=== PATIENT | male | born 1940 | race Caucasian/White ===

== ENCOUNTER 2020-12-17 14:39 | Emergency (ER) | payer MEDICARE ==
[2020-12-17 15:00] VITALS: RESP 18; TEMP 98.7
--- NOTE | 2020-12-17 16:24 | ED ---
General Adult HPI - General Chief complaint: Extremity Problem,Nontraumatic Stated complaint: L foot swelling Time Seen by Provider: 12/17/20 16:09 Source: patient, family, RN notes reviewed, old records reviewed Mode of arrival: ambulatory Limitations: no limitations - History of Present Illness Initial comments: 80-year-old male presenting for concern for infection left third toe. This been ongoing for the past. Of one month. He was on a course of oral antibiotics and topical Neosporin prescribed by his gravure press set up operator. He had been evaluated and felt to require evaluation the emergency department. He has been afebrile. He states that the leg has been swollen for approximately one month and he noted some increased erythema and swelling of the both first toe and third toe on the left. There is been no purulent drainage. No significant pain. He is a known diabetic. - Related Data Previous Rx's Medication Instructions Recorded Cephalexin [Keflex] 500 mg PO QID #40 cap 12/17/20 Sulfamethox-Tmp 800-160Mg [Bactrim 1 tab PO Q12HR #28 tab 12/17/20 DS 800-160 mg] Allergies Allergy/AdvReac Type Severity Reaction Status Date / Time No Known Allergies Allergy Verified 12/17/20 15:00 Review of Systems ROS Statement: Those systems with pertinent positive or pertinent negative responses have been documented in the HPI. ROS Other: All systems not noted in ROS Statement are negative. Past Medical History Past Medical History: Atrial Fibrillation, Diabetes Mellitus History of Any Multi-Drug Resistant Organisms: MRSA Date of last positivie culture/infection: 11/21/20 MDRO Source:: Left 3rd Toe Past Surgical History: Joint Replacement Additional Past Surgical History / Comment(s): bilater knee replacement, right hip sx, left shoulder sx Past Psychological History: No Psychological Hx Reported Smoking Status: Former smoker Past Alcohol Use History: None Reported Past Drug Use History: None Reported General Exam Limitations: no limitations General appearance: alert, in no apparent distress Head exam: Present: atraumatic, normocephalic Eye exam: Present: normal appearance, PERRL ENT exam: Present: normal exam Neck exam: Present: normal inspection. Absent: tenderness, meningismus Respiratory exam: Present: normal lung sounds bilaterally. Absent: respiratory distress, wheezes Cardiovascular Exam: Present: normal rhythm, tachycardia GI/Abdominal exam: Present: soft. Absent: distended, tenderness, guarding, rebound Extremities exam: Present: pedal edema (The left leg is swollen to the knee. There is erythema in the first and third toe with some soft tissue swelling. No drainable abscess noted. No erythema into the foot.) Neurological exam: Present: alert, oriented X3, CN II-XII intact. Absent: motor sensory deficit Psychiatric exam: Present: normal affect, normal mood Skin exam: Present: warm, dry Course Vital Signs 12/17/20 14:48 Temperature 98.7 F Pulse Rate 49 L Respiratory 18 Rate Blood Pressure 200/74 O2 Sat by Pulse 98 Oximetry Medical Decision Making - Medical Decision Making 80-year-old male with suspected infection in the first and third toes of the left foot. Patient well-appearing with stable vitals. He is afebrile with no history of fever. There was some soft tissue swelling without erythema in the leg. I did perform an ultrasound which was negative for DVT. He has good cap refill. There is no obvious ulceration or purulent drainage. He has normal white blood cell count, he is anemic with history of iron deficiency anemia. He is on Coumadin which is therapeutic. He has normal electrolytes, normal lactic acid. At this time we will trial oral antibiotics. He has an appointment with his gravure press set up operator on . He will maintain this appointment for reevaluation. - Lab Data Result diagrams: 12/17/20 16:46 12/17/20 16:46 Lab Results 12/17/20 12/17/20 12/17/20 Range/Units 16:46 16:46 16:46 WBC 7.0 (3.8-10.6) k/uL RBC 3.99 L (4.30-5.90) m/uL Hgb 9.9 L (13.0-17.5) gm/dL Hct 31.1 L (39.0-53.0) % MCV 77.8 L (80.0-100.0) fL MCH 24.7 L (25.0-35.0) pg MCHC 31.7 (31.0-37.0) g/dL RDW 18.1 H (11.5-15.5) % Plt Count 202 (150-450) k/uL MPV 7.3 Neutrophils % 72 % Lymphocytes % 10 % Monocytes % 7 % Eosinophils % 8 % Basophils % 1 % Neutrophils # 5.0 (1.3-7.7) k/uL Lymphocytes # 0.7 L (1.0-4.8) k/uL Monocytes # 0.5 (0-1.0) k/uL Eosinophils # 0.6 (0-0.7) k/uL Basophils # 0.0 (0-0.2) k/uL Anisocytosis Slight Microcytosis Slight PT 23.7 H (9.0-12.0) sec INR 2.4 H (<1.2) APTT 46.4 H (22.0-30.0) sec Sodium 134 L (137-145) mmol/L Potassium 4.2 (3.5-5.1) mmol/L Chloride 102 (98-107) mmol/L Carbon Dioxide 24 (22-30) mmol/L Anion Gap 8 mmol/L BUN 11 (9-20) mg/dL Creatinine 0.76 (0.66-1.25) mg/dL Est GFR (CKD-EPI)AfAm >90 (>60 ml/min/1.73 sqM) Est GFR (CKD-EPI)NonAf 87 (>60 ml/min/1.73 sqM) Glucose 96 (74-99) mg/dL Plasma Lactic Acid Lauro (0.7-2.0) mmol/L Calcium 8.6 (8.4-10.2) mg/dL Magnesium 2.1 (1.6-2.3) mg/dL Total Bilirubin 0.6 (0.2-1.3) mg/dL AST 28 (17-59) U/L ALT 11 (4-49) U/L Alkaline Phosphatase 107 (38-126) U/L Total Protein 6.5 (6.3-8.2) g/dL Albumin 3.5 (3.5-5.0) g/dL 12/17/20 Range/Units 16:46 WBC (3.8-10.6) k/uL RBC (4.30-5.90) m/uL Hgb (13.0-17.5) gm/dL Hct (39.0-53.0) % MCV (80.0-100.0) fL MCH (25.0-35.0) pg MCHC (31.0-37.0) g/dL RDW (11.5-15.5) % Plt Count (150-450) k/uL MPV Neutrophils % % Lymphocytes % % Monocytes % % Eosinophils % % Basophils % % Neutrophils # (1.3-7.7) k/uL Lymphocytes # (1.0-4.8) k/uL Monocytes # (0-1.0) k/uL Eosinophils # (0-0.7) k/uL Basophils # (0-0.2) k/uL Anisocytosis Microcytosis PT (9.0-12.0) sec INR (<1.2) APTT (22.0-30.0) sec Sodium (137-145) mmol/L Potassium (3.5-5.1) mmol/L Chloride (98-107) mmol/L Carbon Dioxide (22-30) mmol/L Anion Gap mmol/L BUN (9-20) mg/dL Creatinine (0.66-1.25) mg/dL Est GFR (CKD-EPI)AfAm (>60 ml/min/1.73 sqM) Est GFR (CKD-EPI)NonAf (>60 ml/min/1.73 sqM) Glucose (74-99) mg/dL Plasma Lactic Acid Lauro 0.7 (0.7-2.0) mmol/L Calcium (8.4-10.2) mg/dL Magnesium (1.6-2.3) mg/dL Total Bilirubin (0.2-1.3) mg/dL AST (17-59) U/L ALT (4-49) U/L Alkaline Phosphatase (38-126) U/L Total Protein (6.3-8.2) g/dL Albumin (3.5-5.0) g/dL Disposition Clinical Impression: Cellulitis of toe of left foot Disposition: HOME SELF-CARE Condition: Fair Instructions (If sedation given, give patient instructions): Cellulitis (ED) Prescriptions: Sulfamethox-Tmp 800-160Mg [Bactrim DS 800-160 mg] 1 tab PO Q12HR #28 tab Cephalexin [Keflex] 500 mg PO QID #40 cap Is patient prescribed a controlled substance at d/c from ED?: No Referrals: Fredy Castellano MD [Primary Care Provider] - 1-2 days Time of Disposition: 18:47
--- NOTE | 2020-12-17 17:35 | US ---
EXAMINATION TYPE: US venous doppler duplex LE LT DATE OF EXAM: 12/17/2020 5:16 PM COMPARISON: NONE CLINICAL HISTORY: swelling. Left lower leg pain and swelling, patient on blood thinners SIDE PERFORMED: Left TECHNIQUE: The lower extremity deep venous system is examined utilizing real time linear array sonog leticia with graded compression, doppler sonography and color-flow sonography. VESSELS IMAGED: Common Femoral Vein Deep Femoral Vein Greater Saphenous Vein * Femoral Vein Popliteal Vein Small Saphenous Vein * Proximal Calf Veins (* superficial vessels) Left Leg: Negative for DVT IMPRESSION: Grayscale, color doppler, spectral doppler imaging performed of the deep veins of the le lower extremity. There is normal flow, compressibility, vascular waveforms.
[2020-12-17 18:01] LABS: Anisocytosis Slight; Basophils % (A) 1 %; Eosinophils # (A) 0.6 k/uL (0-0.7); Eosinophils % (A) 8 %; HCT 31.1 % (39.0-53.0); HGB 9.9 gm/dL (13.0-17.5); Lymphocytes # (A) 0.7 k/uL (1.0-4.8); Lymphocytes % (A) 10 %; MCH 24.7 pg (25.0-35.0); MCHC 31.7 g/dL (31.0-37.0); MCV 77.8 fL (80.0-100.0); Mean Platelet Volume 7.3; Microcytosis Slight; Monocytes # (A) 0.5 k/uL (0-1.0); Monocytes % (A) 7 %; Neutrophils % (A) 72 %; Platelet Count 202 k/uL (150-450); RBC 3.99 m/uL (4.30-5.90); RDW 18.1 % (11.5-15.5)
[2020-12-17 18:09] LABS: INR 2.4 (<1.2); Partial Thromboplastin Time 46.4 sec (22.0-30.0); Prothrombin Time 23.7 sec (9.0-12.0)
[2020-12-17 18:32] LABS: ALT 11 U/L (4-49); AST 28 U/L (17-59); African American GFR (CKD) >90 (>60 ml/min/1.73 sqM); Albumin 3.5 g/dL (3.5-5.0); Alkaline Phosphatase 107 U/L (38-126); Anion Gap 8 mmol/L; Blood Urea Nitrogen 11 mg/dL (9-20); Calcium 8.6 mg/dL (8.4-10.2); Carbon Dioxide 24 mmol/L (22-30); Chloride 102 mmol/L (98-107); Glucose 96 mg/dL (74-99); Magnesium 2.1 mg/dL (1.6-2.3); Non-African American GFR(CKD) 87 (>60 ml/min/1.73 sqM); Potassium 4.2 mmol/L (3.5-5.1); Sodium 134 mmol/L (137-145); Total Bilirubin 0.6 mg/dL (0.2-1.3); Total Protein 6.5 g/dL (6.3-8.2)
[2020-12-17 19:42] VITALS: BP 201/74; PULSE 60
== END 2020-12-17 19:07 | disposition home or self-care (01) ==
LOC: EC 14:39
DX: L03.032 Cellulitis of left toe (principal); E11.9 Type 2 diabetes mellitus without complications; I48.91 Unspecified atrial fibrillation; Z87.891 Personal history of nicotine dependence; Z79.01 Long term (current) use of anticoagulants
CPT/HCPCS: 36415; 80053; 83605; 83735; 85025; 85610; 85730; 87040; 99284

== ENCOUNTER → 2021-11-06 | Day surgery (SDC) | payer MEDICARE ==
[2021-10-28 13:24] VITALS: BMI 25.1
[~2021-11-06] MED LIST: SIMETHICONE 40 MG/0.6 ML DROPS 2,000 MG/30 ML BOTTLE PO ONE
[2021-11-06 07:10] VITALS: BP 127/62; PULSE 63; RESP 18; TEMP 97.4
== END ==
LOC: ORWHC2ENDO 06:40
PROVIDERS: ATTEND Internal Medicine Gastroenterology
DX: D50.9 Iron deficiency anemia, unspecified (principal)
CPT/HCPCS: 91110

== ENCOUNTER → 2022-05-27 | Outpatient (CLI) | payer MEDICARE ==
--- NOTE | 2022-05-27 20:23 | MR ---
EXAMINATION TYPE: MR abdomen wo/w con DATE OF EXAM: 05/27/2022 COMPARISON: None HISTORY: PT STATED LOW HEMOGLOBIN AND HAD AN ULTRASOUND OF KIDNEY DONE AT [facility] CONTRAST: Standard multiplanar, multisequence MRI departmental protocol images were obtained without contrast a nd with 7.5 mL intravenous Gadavist gadolinium contrast. There is a large complex mixed signal rounded 14.5 cm mass above the upper pole of the right kidney. There is some inferior displacement of the right kidney. The origin of this mass is not clear what ap pears separate from the liver and also separate from the right renal cortex. There is no enhancement. There is no evidence of retroperitoneal adenopathy. The kidneys show satisfactory contrast enhanceme nt. No hydronephrosis. Liver shows no focal defect. The spleen is intact. There is no evidence of pancreatic mass. The stoma ch is intact. No evidence of left adrenal mass. Right adrenal gland not seen. The large mass above th e right kidney could be arising from the right adrenal gland. No evidence of a bowel obstruction. No ascites. No evidence of pleural effusion. There are low signal irregular areas within the gallbladder consistent with multiple gallstones. No gallbladder wall thic kening. No dilated ducts. IMPRESSION: There is a large complex mixed signal mass which is nonenhancing and has mixed signal within the righ t upper quadrant that could be a large adrenal tumor with hemorrhage. Cholelithiasis. No dilated ducts. No focal liver defect.
== END | disposition home or self-care (01) ==
LOC: RADMRIMAIN 16:45
PROVIDERS: ATTEND Internal Medicine Hematology & Oncology
DX: K80.20 Calculus of gallbladder without cholecystitis without obstruction (principal); R19.01 Right upper quadrant abdominal swelling, mass and lump
CPT/HCPCS: 74183; A9585

== ENCOUNTER 2022-06-01 08:50 | Day surgery (SDC) | payer MEDICARE ==
[~2022-06-01 08:50] MED LIST changes: +ALPRAZolam 0.25 MG TAB PO PRN; +HYDROmorphone 0.5 MG/0.5 ML SYRINGE IVP PRN; -SIMETHICONE 40 MG/0.6 ML DROPS 2,000 MG/30 ML BOTTLE PO ONE
[2022-06-01 09:39] LABS: Basophils % (A) 1 %; Eosinophils # (A) 0.2 k/uL (0-0.7); Eosinophils % (A) 4 %; HCT 24.4 % (39.0-53.0); HGB 8.1 gm/dL (13.0-17.5); Lymphocytes # (A) 0.5 k/uL (1.0-4.8); Lymphocytes % (A) 10 %; MCH 30.5 pg (25.0-35.0); MCHC 33.1 g/dL (31.0-37.0); MCV 92.1 fL (80.0-100.0); Mean Platelet Volume 8.5; Monocytes # (A) 0.4 k/uL (0-1.0); Monocytes % (A) 7 %; Neutrophils # (A) 4.2 k/uL (1.3-7.7); Neutrophils % (A) 76 %; Platelet Count 204 k/uL (150-450); RBC 2.64 m/uL (4.30-5.90); RDW 14.8 % (11.5-15.5); WBC 5.5 k/uL (3.8-10.6)
[2022-06-01 09:47] LABS: INR 1.1 (<1.2); Prothrombin Time 11.8 sec (9.0-12.0)
[2022-06-01 09:48] VITALS: TEMP 97.4
[2022-06-01] MEDS ORDERED: MICROFIBRILLAR COLLAGEN HEMOST 0.5 GM PACK TOPICAL ONE (09:52)
--- NOTE | 2022-06-01 11:23 | CT ---
EXAMINATION TYPE: CT biopsy abdomen percutaneous DATE OF EXAM: 06/01/2022 COMPARISON: NONE HISTORY: RUQ abdominal mass CT DLP: 2423mGycm The procedure was explained to the patient. The risks, complications, benefits, and alternatives wer e discussed and any questions were answered. Informed consent was obtained. Patient was placed pron e on the CT table and prepped and draped in the usual sterile fashion. All elements of maximal barrier and sterile technique utilized. Utilizing CT guidance, an 18 gauge core biopsy needle access into large right upper quadrant mass was was achieved and a single 18 gauge core sample was obtained. Approximately 15 cc of blood which appe ared to be of chronic nature was also aspirated. The patient was stable throughout the procedure and remained stable upon discharge. IMPRESSION: 1. Successful 18 gauge core biopsy of the requested right abdominal mass
[2022-06-01 14:55] VITALS: RESP 16
[2022-06-01 15:02] VITALS: BP 138/61; PULSE 56
== END 2022-06-01 14:38 | disposition home or self-care (01) ==
LOC: RADPROMAIN 08:50
PROVIDERS: ATTEND Internal Medicine Hematology & Oncology
DX: R19.01 Right upper quadrant abdominal swelling, mass and lump (principal); I48.0 Paroxysmal atrial fibrillation; I12.9 Hypertensive chronic kidney disease with stage 1 through stage 4 chronic kidney disease, or unspecified chronic kidney disease; N18.31 Chronic kidney disease, stage 3a; E78.5 Hyperlipidemia, unspecified; I73.9 Peripheral vascular disease, unspecified; D50.9 Iron deficiency anemia, unspecified; Z96.653 Presence of artificial knee joint, bilateral; Z79.899 Other long term (current) drug therapy; Z79.01 Long term (current) use of anticoagulants; Z80.1 Family history of malignant neoplasm of trachea, bronchus and lung; Z80.3 Family history of malignant neoplasm of breast; Z87.891 Personal history of nicotine dependence; Z86.59 Personal history of other mental and behavioral disorders; Z87.39 Personal history of other diseases of the musculoskeletal system and connective tissue; Z71.3 Dietary counseling and surveillance
CPT/HCPCS: 36415; 49180; 77012; 85025; 85610; 88173; 88305

== ENCOUNTER → 2022-08-07 | Outpatient (CLI) | payer MEDICARE ==
--- NOTE | 2022-08-08 12:42 | MR ---
EXAMINATION TYPE: MR abdomen wo/w con DATE OF EXAM: 08/07/2022 3:03 PM INDICATION: Patient age:Male; 82 years old; Reason for study: [id number] RIGHT UPPER QUADRANT ABDOMINAL SWELLING, MAS. RUQ abdominal mass, biopsy done COMPARISON: CT scan abdomen from MRI 05/27/2022, CT 06/01/2022. TECHNIQUE: Multiplanar multi-sequence imaging was performed without contrast. Post contrast imaging was performed. Post IV contrast subtraction images were also submitted for review. IV Contrast: 7 cc Gadavist FINDINGS: LOWER CHEST: No gross irregularity. ABDOMEN Liver: Signal dropout on chemical shift in phase imaging. Gallbladder and Bile ducts: Unremarkable. Pancreas: Unremarkable. Spleen: Signal dropout on chemical shift in phase imaging. Adrenal glands: Left adrenal gland is unremarkable. The right adrenal gland is favored to contain a l arge mass described below. Kidneys: Right kidney is displaced inferiorly. High T2 signal cyst. Stomach and Bowel: Unremarkable as visualized. Peritoneum: No evidence of pneumoperitoneum. Trace amount of free fluid is seen within the abdomen. Vasculature: Unremarkable. No aortic aneurysm. Musculoskeletal: The osseous structures appear intact. Lymph Nodes: No gross evidence for lymphadenopathy. Abdominal wall: Unremarkable. Large heterogenous signal mass measuring 13.4 x 13.1 cm, previously 12.5 x 12.7 cm, it is unclear whe ther this is originating from the kidney liver or right adrenal gland. It appears to be separate from the kidney and liver with a thin line of of fat seen between the mass and these organs. There is no signal dropout on chemical shift imaging. There is scattered areas of diffusion restriction within th is lesion. Intrinsic high T1 signal is seen within different areas of this lesion irregular morpholog y. There is no definitive postcontrast enhancement centrally on subtraction imaging. The peripheral a spect has some irregular somewhat curvilinear enhancement suggested subtraction imaging which could r epresent vessels. IMPRESSION: 1. Minimally larger right abdominal mass compared to prior 05/27/2022. This is located within the rig ht adrenal fossa and appears separate from the right kidney and liver. There may be peripheral vascul arity around this lesion abuts the central portion which does not enhance. Findings could represent h emorrhagic adrenal mass given prior biopsy of blood products. 2. Iron deposition within the liver and spleen.
== END | disposition home or self-care (01) ==
LOC: RADMRIMAIN 13:15
PROVIDERS: ATTEND Internal Medicine Hematology & Oncology
DX: R19.01 Right upper quadrant abdominal swelling, mass and lump (principal)
CPT/HCPCS: 74183; A9585

== ENCOUNTER → 2022-09-23 | Outpatient (CLI) | payer MEDICARE ==
--- NOTE | 2022-09-23 10:26 | US ---
EXAMINATION TYPE: US abdomen complete DATE OF EXAM: 09/23/2022 COMPARISON: CT 06/01/2022, MRI 05/27/2022 CLINICAL INDICATION: Male, 82 years old with history of R19.01 RIGHT UPPER QUADRANT ABDOMINAL SWELLIN G, [place]; History of right upper quadrant mass. TECHNIQUE: Multiple sonographic images of the abdomen are obtained. FINDINGS: EXAM MEASUREMENTS: Liver Length: 17.3 cm Gallbladder Wall: 0.5 cm CBD: 0.4 cm Spleen: 10.7 cm Right Kidney: 9.1 x 4.2 x 4.8 cm Left Kidney: 9.8 x 4.2 x 5.0 cm Pancreas: Tail obscured by overlying bowel gas. Echogenic in appearance. Main pancreatic duct- 2.0 mm. Liver: wnl Gallbladder: Wall thickening. Mobile stone = 1.2 cm. Stone visualized within the neck = 0.6 cm Evidence for sonographic Tran's sign: neg CBD: wnl Spleen: wnl Right Kidney: No hydronephrosis or masses seen. Limited visualization of lower pole due to bowel ga s Left Kidney: No hydronephrosis or masses seen Upper IVC: wnl Abd Aorta: No AAA visualized at time of scan Right upper quadrant heterogenous vascular mass located between liver and right kidney = 13.5 x 13 .1 x 15.3 cm IMPRESSION: 1. Right upper quadrant mass similar given differences in technique and prior to MRI 05/27/2022 2. Cholelithiasis. Questionable wall thickening noted by leguillon debeader. If this concern for acute chol ecystitis consider HIDA scan.
== END | disposition home or self-care (01) ==
LOC: RADUSWWP 08:58
PROVIDERS: ATTEND Internal Medicine Hematology & Oncology
DX: K80.20 Calculus of gallbladder without cholecystitis without obstruction (principal); D50.9 Iron deficiency anemia, unspecified; N18.31 Chronic kidney disease, stage 3a; R19.01 Right upper quadrant abdominal swelling, mass and lump; Z87.39 Personal history of other diseases of the musculoskeletal system and connective tissue
CPT/HCPCS: 76700

== ENCOUNTER → 2022-10-30 | Outpatient (CLI) | payer MEDICARE ==
--- NOTE | 2022-10-30 23:07 | PE ---
EXAMINATION TYPE: PET CT fusion skull to thigh DATE OF EXAM: 10/30/2022 CLINICAL INDICATION:Male, 82 years old with history of ABD MASS R935; TECHNIQUE: Following the intravenous administration of 9.6 mCi of F-18 FDG, whole body images are p erformed from the skull base to the midthigh. Images are reviewed on the computer in the coronal, ax ial, and sagittal planes. Reconstructed rotating images are created on independent workstation and r eviewed on the computer. A non-contrast CT is performed in conjunction with the PET scan. Glucose l evel 88 mg/dL CT DLP: 431 mGycm, Automated exposure control for dose reduction was used. COMPARISON: CT 06/01/2022, PET/CT None, MRI 08/07/2022 05/27/2022 FINDINGS: Mediastinal SUV mean is 1.2. Hepatic parenchyma SUV mean is 1.6. SKULL BASE AND NECK: No suspicious radiotracer activity. CHEST, MEDIASTINUM, AND HILAR REGION: No suspicious radiotracer activity. ABDOMEN AND PELVIS: Large abdominal mass possibly adrenal in etiology given prior imaging measuring up to 14.1 x 13.1 cm which is similar to prior when measuring similarly. No significant uptake within this lesion on PET i maging. Mass appears predominantly cystic. MUSCULOSKELETAL STRUCTURES: No suspicious radiotracer activity. OTHER CT: Atherosclerosis of the arterial vasculature mild paraseptal emphysema changes throughout th e lungs. The heart is moderately enlarged for size. Coronary artery calcifications. Trace pericardial fluid in the pericardial recesses. IMPRESSION: Large right abdominal mass without increased FDG activity centrally. Lesion appears somewhat cystic. There is no abnormal FDG activity identified within the head, neck, chest, abdomen, or pelvis.
== END | disposition home or self-care (01) ==
LOC: RADPETMAIN 12:06
PROVIDERS: ATTEND Internal Medicine Hematology & Oncology
DX: R19.09 Other intra-abdominal and pelvic swelling, mass and lump (principal); R93.5 Abnormal findings on diagnostic imaging of other abdominal regions, including retroperitoneum
CPT/HCPCS: 78815; A9552